=== PATIENT | female | born 1940 | race Caucasian/White ===

== ENCOUNTER 2018-02-17 10:49 | Day surgery (SDC) | payer MEDICARE, MEDICAID ==
[2018-02-14 11:27] VITALS: BP 137/72
[2018-02-14 12:27] LABS: ALANINE AMINOTRANSFERASE 25 U/L (12-78); ALBUMIN 3.6 g/dL (3.4-5.0); ANION GAP 8 mmol/L (5-15); CHLORIDE 108 mmol/L (98-107); CREATININE 0.74 mg/dL (0.55-1.02)
[2018-02-14 12:28] LABS: ALKALINE PHOSPHATASE 82 U/L (45-117); BILIRUBIN,TOTAL 0.6 mg/dL (0.2-1.0); TOTAL PROTEIN 6.7 g/dL (6.4-8.2)
[~2018-02-17] VITALS: Ht 157.5 cm; Wt 63.3 kg
[~2018-02-17 10:49] MED LIST: ASPI-496 PO; BRIN10DR EACHEYE; BUPIVACAINE/PF-EPI 0.25% 1:200K ONE; D ME PO; FENTANYL PF 100 MCG/2ML ONE; GABA300C10 PO; INSU100I18 SC; LOPE2CAP PO; METF500T17 PO; MIDAZOLAM 1 MG/ML, 2ML ONE; MULT-658 PO; NEOMY/POLYMYXIN B GU IRR. 1 ML IRRIG ONE; OMEG1CAP23 PO; SIMV20TA3 PO; SITA100T PO; TRAV5DRO EACHEYE
[2018-02-17 11:18] VITALS: BP 137/72
[2018-02-17] MEDS ORDERED: HYDR-3237 PO (11:22)
[2018-02-17] MEDS ORDERED: HYDROmorphone 1 MG/ML, 1ML IV PRN (12:30)
[2018-02-17] MEDS ORDERED: OXYcodone 5 MG/5 ML ORAL.SOL UDC PO PRN (12:30)
[2018-02-17] MEDS ORDERED: MIDAZOLAM 1 MG/ML, 2ML IV PRN (12:30)
[2018-02-17] MEDS ORDERED: FENTANYL PF 100 MCG/2ML IV PRN (12:30)
[2018-02-17] MEDS ORDERED: LABETALOL 5MG/ML, 20ML IV PRN (12:30)
[2018-02-17] MEDS ORDERED: MEPERIDINE/PF 25MG/0.5ML IVPush PRN (12:30)
[2018-02-17] MEDS ORDERED: ONDANSETRON 2MG/ML, 2ML IVPush PRN (12:30)
[2018-02-17] MEDS ORDERED: GLYCOPYRROLATE 0.2MG/1ML, 5ML ONE (12:48)
[2018-02-17] MEDS ORDERED: ROCURONIUM 10MG/ML,5ML ONE (12:48)
[2018-02-17] MEDS ORDERED: LACTATED RINGERS 1,000 ML ONE (12:48)
[2018-02-17] MEDS ORDERED: CEFAZOLIN 1,000 MG ONE (12:48)
[2018-02-17] MEDS ORDERED: METOCLOPRAMIDE 5 MG/ML, 2ML ONE (12:48)
[2018-02-17] MEDS ORDERED: PROPOFOL 10 MG/ML, 20ML ONE (12:48)
[2018-02-17] MEDS ORDERED: KETOROLAC 30 MG/1 ML ONE (12:48)
[2018-02-17] MEDS ORDERED: ONDANSETRON 2MG/ML, 2ML ONE (12:48)
[2018-02-17] MEDS ORDERED: DEXAMETHASONE 4 MG/ML, 1ML ONE (12:48)
[2018-02-17] MEDS ORDERED: SUGAMMADEX 200 MG/2 ML IVPush ONE (13:51)
[2018-02-17] MEDS ORDERED: ACETAMINOPHEN 650 MG/20.3 ML UDC PO PRN (14:30)
== END 2018-02-17 16:10 | disposition home or self-care (01) ==
LOC: OUT 10:49
PROVIDERS: ATTEND Obstetrics & Gynecology Female Pelvic Medicine and Reconstructive Surgery
DX: N39.46 Mixed incontinence (principal); N81.89 Other female genital prolapse; D27.0 Benign neoplasm of right ovary; N83.8 Other noninflammatory disorders of ovary, fallopian tube and broad ligament; E11.9 Type 2 diabetes mellitus without complications; Z90.710 Acquired absence of both cervix and uterus; Z98.890 Other specified postprocedural states; Z88.5 Allergy status to narcotic agent; Z88.8 Allergy status to other drugs, medicaments and biological substances; Z86.73 Personal history of transient ischemic attack (TIA), and cerebral infarction without residual deficits
CPT/HCPCS: 36415; 57265; 57282; 57288; 58661; 80053; 88305; 93005; C1771; J0690; J1100; J1885; J2250; J2405; J2704; J2765; J3010; J3490; J7120

== ENCOUNTER 2018-02-18 21:34 | Emergency (ER) | payer MEDICARE, MEDICAID ==
[~2018-02-18] VITALS: Ht 157.5 cm; Wt 67.0 kg
[~2018-02-18 21:34] MED LIST changes: -BUPIVACAINE/PF-EPI 0.25% 1:200K ONE; -FENTANYL PF 100 MCG/2ML ONE; +HYDR-3237 PO; -MIDAZOLAM 1 MG/ML, 2ML ONE; -NEOMY/POLYMYXIN B GU IRR. 1 ML IRRIG ONE
[2018-02-19 00:02] LABS: CULTURE INDICATED? YES; MICROSCOPIC INDICATED
[2018-02-19 00:21] VITALS: BP 132/80
== END 2018-02-19 00:40 | disposition home or self-care (01) ==
LOC: ED 02-19 00:07
DX: R33.9 Retention of urine, unspecified (principal); N30.01 Acute cystitis with hematuria; E11.9 Type 2 diabetes mellitus without complications; Z86.73 Personal history of transient ischemic attack (TIA), and cerebral infarction without residual deficits
CPT/HCPCS: 51702; 81001; 87086; 99284